=== PATIENT | male | born 1990 | race Caucasian/White ===

== ENCOUNTER 2019-07-01 13:28 | Outpatient (CLI) | payer MEDICAID ==
[~2019-07-01] VITALS: Ht 177.8 cm; Wt 89.4 kg
[2019-07-01 13:40] VITALS: BP 114/70
--- NOTE | 2019-07-02 08:00 | Consultation ---
DATE OF CONSULTATION: 07/01/2019 CHIEF COMPLAINT: Diarrhea. HISTORY OF PRESENT ILLNESS: The patient is a 29-year-old 00:12 male homosexual who presents to the hospital complaining of diarrhea for long time on and off. He had workup with the primary care physician, had stool studies which were negative including 00:23 at one point the patient was given Flagyl with minimum help, but the patient also had been checked for celiac disease which has been negative according to the patient. He was referred to GI for evaluation of chronic diarrhea. PAST MEDICAL HISTORY: Neck pain. PAST SURGICAL HISTORY: Hernia repair. MEDICATIONS: Please see medication reconciliation list. FAMILY HISTORY: Noncontributory. SOCIAL HISTORY: The patient drinks socially. Denies any tobacco or IV drug abuse. ALLERGIES: Cephalosporin. REVIEW OF SYSTEMS: Positive for diarrhea. PHYSICAL EXAMINATION: VITAL SIGNS: Temperature 98.8, blood pressure 114/70, pulse 69, respirations 20. HEENT: Normocephalic and atraumatic. Sclerae anicteric. NECK: Supple. No evidence of obvious lymphadenopathy. CARDIOVASCULAR: Regular rate and rhythm. Plus S1-S2. LUNGS: Clear to auscultation bilaterally. ABDOMEN: Positive bowel sounds. Soft and nontender. No rebound. No guarding. No peritoneal sign. EXTREMITIES: No cyanosis, no clubbing, no edema. ASSESSMENT/PLAN: The patient is a 29-year-old 01:13 male with chronic diarrhea with negative celiac panel, negative stool studies, concern for inflammatory bowel disease. The patient needs to have colonoscopy. The risks and benefits of procedure was explained to him, he agreed so we are going to go ahead and schedule him when the authorization is obtained. Shiv Sevilla M.D. DR: Jimmy JOB#: [id number] CC:
[2019-07-02] MEDS ORDERED: GABAPENTIN100 MG ORAL (15:50)
[2019-07-02] MEDS ORDERED: PROSCAR5 MG ORAL (15:50)
[2019-07-02] MEDS ORDERED: PROPECIA1 MG PO (15:50)
== END 2019-07-01 15:28 | disposition home or self-care (01) ==
LOC: PAN 13:28
DX: R19.7 Diarrhea, unspecified (principal); Z88.8 Allergy status to other drugs, medicaments and biological substances
CPT/HCPCS: G0463